=== PATIENT | female | born 2000 | race American Indian/Alaskan Native ===

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

== ENCOUNTER 2018-04-12 21:14 | Emergency (ER) | payer OTHER, MEDICAID ==
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
== END 2018-04-12 22:00 ==
LOC: DL.ED 21:14
DX: S00.83XA Contusion of other part of head, initial encounter (principal); V47.6XXA Car passenger injured in collision with fixed or stationary object in traffic accident, initial encounter
CPT/HCPCS: 99284